=== PATIENT | female | born 1980 | race Asian ===

== ENCOUNTER 2016-12-02 08:24 | Outpatient (CLI) | payer MEDICAID | END 2016-12-02 08:25 | disposition home or self-care (01) | DX: Z36 Encounter for antenatal screening of mother (principal) ==

== ENCOUNTER 2017-03-09 08:51 | Outpatient (CLI) | payer MEDICAID ==
--- NOTE | 2017-03-09 11:16 | Ultrasound Report ---
OB FOLLOWUP: 03/09/2017 CLINICAL INDICATION: Cervical length. TECHNIQUE: Real-time scanning was performed with sales representative publications static images obtained. LAST MENSTRUAL PERIOD 07/19/2016 Clinical Age 33 weeks 2 days US Age 33 weeks 3 days EFW Had[place] 2138 g EFW% Hadlock 43% Heart Rate 132 EDC 04/25/2017 US EDC 04/24/2017 BPD [place] 33 weeks 3 days; Mean mm 83.2 HC [place] 33 weeks 6 days; Mean mm 306.2 AC [place] 33 weeks 4 days; Mean mm 293.5 FL [place] 32 weeks 2 days; Mean mm 62.9 Presentation cephalic Placental Location posterior Cervical Length 3.51 cm Amniotic Fluid 15.0 cm FINDINGS: There is a single viable intrauterine gestation, in cephalic presentation. heart rate is 132 BPM. The placenta is posterior, without evidence of previa. Amniotic fluid volume is normal, with an RIKA of 15.0. The cervix measures 3.5 cm, and is closed. By size, the fetus measures 33.5 weeks ( 33.7 weeks by initial sonogram, 33.3 weeks by LMP). No free fluid or adnexal lesion is seen. IMPRESSION: SINGLE VIABLE INTRAUTERINE GESTATION, WITH SIZE IN KEEPING WITH LMP DATING. A 3.5 CM CERVIX, WITHOUT EVIDENCE OF FUNNELLING. MTDD
== END 2017-03-09 08:52 | disposition home or self-care (01) ==
LOC: DI 08:51
PROVIDERS: ATTEND Midwife
DX: Z36 Encounter for antenatal screening of mother (principal)
CPT/HCPCS: 76816

== ENCOUNTER 2020-07-24 16:55 | Outpatient (CLI) | payer MEDICAID ==
--- NOTE | 2020-07-26 10:09 | Ultrasound Report ---
PROCEDURE: OB Detailed Eval INDICATIONS: ANATOMY SCREEN, UNCERTAIN LMP DATING OUTSIDE/PRIOR DATING DATA: Last menstrual period (LMP): Not available. LMP-based estimated date of delivery (WILFREDO): Not available. First dating scan (date and location): The study. Estimated date of delivery (WILFREDO) from first dating scan: 10/15/2020. TECHNIQUE: Real-time scanning was performed of the fetus, with image documentation and biometric measurements. Endovaginal scanning: Not needed COMPARISON: None. FINDINGS: General: A single living intrauterine gestation is present. Presentation: Breech Placenta: Placental position is anterior, without previa. Amniotic fluid index: 12.2 cm, normal for gestational age. heart rate: 149 beats per minute. Maternal cervical canal: 3.2 cm long; normal length is 2.5 cm or more. biometrics: Biparietal diameter: 7.1 cm, 28 weeks 4 days Head circumference: 26.7 cm, 29 weeks 1 day Abdominal circumference: 24.0 cm, 28 weeks 2 days Femur length: 4.8 cm, 26 weeks 2 days Estimated gestational age from initial scan: not applicable. Composite gestational age from present scan: 28 weeks 1 day Estimated weight: 1115 g Measurement variability in biometric dating: +/- 10 days from 12-20 weeks gestation, +/- 2 weeks from 20-30 weeks gestation, +/- 3 weeks at 30 weeks gestation or later. Anatomic survey: Neuro: Ventricles are normal at less than 10 mm. Cisterna magna is normal at 3-11 mm. Cerebellum i s normal in size and morphology. Face: Nose and lips, facial profile are normal. Spine: No evidence for spina bifida. Heart: 4-chambered heart is present, with normal ventricular outflow tracts. Diaphragm: Diaphragm is intact. Stomach: Left-sided stomach is present. Kidneys: No hydronephrosis. Normal is less than 5 mm in 2nd trimester, less than 7 mm in 3rd trimester. Cord: 3 vessel cord has orthotopic insertion. Bladder: Normal in size. Extremities: All 4 extremities are visualized. IMPRESSION: First OB ultrasound, 28 weeks 1 day estimated current gestational age. The delivery date is projected to be centered on 10/25/2020. No anomaly seen. Reviewed by: Chan Rowe MD on 07/26/2020 10:08 AM PST Approved by: Chan Rowe MD on 07/26/2020 10:08 AM [facility] Station ID: [id number]
== END 2020-07-24 16:56 | disposition home or self-care (01) ==
LOC: DI 16:55
PROVIDERS: ATTEND Midwife
DX: Z36.2 Encounter for other antenatal screening follow-up (principal)

== ENCOUNTER 2021-04-22 16:47 | Outpatient (CLI) | payer MEDICAID | END 2021-04-22 16:48 | disposition home or self-care (01) | LOC: COV 16:47 | PROVIDERS: ATTEND Family Medicine | DX: U07.1 COVID-19 (principal) ==